=== PATIENT | female | born 1980 | race Caucasian/White ===

== ENCOUNTER 2021-03-19 04:08 | Emergency (ER) | payer SELFPAY ==
[~2021-03-19] VITALS: Ht 162.6 cm; Wt 95.3 kg
[2021-03-19 04:56] LABS: BILIRUBIN,URINE NEGATIVE (NEGATIVE); COLOR,URINE YELLOW (YELLOW); LEUKOCYTE ESTERASE ,URINE TRACE (NEGATIVE); NITRITE, URINE NEGATIVE (NEGATIVE); PROTEIN,URINE NEGATIVE (NEGATIVE); UGLUCOSE NEGATIVE (NEGATIVE); UROBILINOGEN,URINE 0.2 EU/dL (0.2)
[2021-03-19 05:26] LABS: BACTERIA,URINE Few /HPF (None Seen); SQUAMOUS EPITHELIAL CELL,UR Few /HPF (None Seen)
[2021-03-19] MEDS ORDERED: CEPH500C2 PO (05:37)
[2021-03-19] MEDS ORDERED: CEFTRIAXONE 1 G VIAL ONE (05:38)
[2021-03-19] MEDS ORDERED: KETOROLAC TROMETHAMINE 15 MG/ML VIAL ONE (05:39)
[2021-03-19 05:45] VITALS: BP 138/86
[2021-03-19] MEDS: CEFTRIAXONE 1 G in IV D5W 50 ML IV ONE (05:48)
[2021-03-19] MEDS: KETOROLAC TROMETHAMINE INJ 30 MG/ML VIAL IV ONE (05:48)
[2021-03-19] MEDS: IV NS 0.9% 1,000 ML IV ONE (05:49)
== END 2021-03-19 07:08 | disposition home or self-care (01) ==
LOC: ER 04:12
DX: N39.0 Urinary tract infection, site not specified (principal)
CPT/HCPCS: 81001; 84703-TC; 87086-TC; J0696; J1885; J7030; J7060